=== PATIENT | female | born 1955 | race Caucasian/White ===

== ENCOUNTER 2019-08-11 06:13 | Day surgery (SDC) | payer BC, OTHER ==
[2019-08-10 14:10] VITALS: BMI 29.3
[2019-08-11] MEDS ORDERED: DEXAMETHASONE SOD PHOSPHATE 4 MG/1 ML VIAL ONE (07:14)
[2019-08-11] MEDS ORDERED: BUPIVACAINE HCL/PF 0.5% (5 MG/ML) 30 ML VIAL IJ ONE ×2 (07:14→08:06)
[2019-08-11] MEDS ORDERED: LIDOCAINE HCL 1%, 10 MG/ML (20ML VIAL) ONE (07:14)
[2019-08-11] MEDS ORDERED: MIDAZOLAM HCL 2 MG/2 ML SINGLE DOSE VIAL ONE ×2 (07:59)
[2019-08-11] MEDS ORDERED: ceFAZolin SODIUM 1 GM VIAL IVPB ONE (08:00)
[2019-08-11] MEDS ORDERED: SUCCINYLCHOLINE CHLORIDE 200 MG/10 ML SYRINGE ONE (08:03)
[2019-08-11] MEDS ORDERED: PROPOFOL 20 ML ONE ×2 (08:03)
[2019-08-11] MEDS ORDERED: LIDOCAINE HCL 1%, 10 MG/ML (20ML VIAL) PNB ONE (08:06)
[2019-08-11] MEDS ORDERED: NABUMETONE 750 MG PO SCH ×3 (09:10→10:00)
[2019-08-11] MEDS ORDERED: ROSUVASTATIN PO SCH ×3 (09:10→10:00)
[2019-08-11] MEDS ORDERED: LISINOPRIL 5 MG PO SCH ×2 (09:10→10:00)
[2019-08-11] MEDS ORDERED: CARBAMAZEPINE 100 MG PO SCH ×3 (09:10→10:00)
[2019-08-11] MEDS ORDERED: LISINOPRIL 5 MG TABLET (FP) PO SCH (09:11)
[2019-08-11 10:00] VITALS: TEMP 97.4
[2019-08-11] MEDS ORDERED: ONDANSETRON 4 MG/2 ML VIAL IVPUSH PRN (10:59)
[2019-08-11] MEDS ORDERED: oxyCODONE HCL 5 MG TABLET PO PRN (10:59)
[2019-08-11] MEDS ORDERED: LACTATED RINGERS SOLUTION 1,000 ML IV SCH (11:00)
[2019-08-11 11:03] VITALS: BP 134/70; PULSE 84
--- NOTE | 2019-08-11 12:28 | OP ---
Operative Note - Note: Operative Date: 08/11/19 Pre-Operative Diagnosis: tumor left foot with exostosis Operation: excision of tumor left foot with exostectomy Findings: Neoplasm and bone spur Post-Operative Diagnosis: Same as Pre-op Surgeon: Maria Fernanda Lopez Lead Man Over [employer] In [employer]: Govind Fuchs Anesthesia: Local, MAC Specimens Removed: bone and soft tissue Estimated Blood Loss (mls): 5 Operative Report Dictated: No
--- NOTE | 2019-08-15 17:43 | PATH ---
Surgical Pathology Report Patient Name: IRMA WOODS [facility]. Rec. #: [id number] /Age/Gender: 1955 (Age: 63) / F Account: [id number] Location: [facility] SUR[facility]ICAL Taken: 08/11/2019 Received: 08/11/2019 Reported: 08/15/2019 Physicians: Maria Fernanda Lopez DPM Specimen(s) Received A: SOFT TISSUE MASS LEFT FOOT B: BONE LEFT FOOT Clinical History Tumor with bone spur left foot Final Diagnosis A. SOFT TISSUE MASS, FOOT, LEFT, EXCISION: DENSE FIBROCONNECTIVE TISSUE WITH DEGENERATIVE AND CYSTIC CHANGE CONSISTENT WITH GANGLION CYST. B. BONE, FOOT, LEFT, EXCISION: BONE WITH DEGENERATIVE CHANGES. Electronically Signed Elva Hurst M.D. Gross Description A. Received in formalin labeled "soft tissue mass," is a 0.9 x 0.4 x 0.2 cm antunez portion of soft tissue. The specimen is submitted in toto in one cassette. B. Received in formalin labeled "bone left foot," is a 0.8 x 0.6 x 0.2 cm aggregate of antunez bone fragments. The specimen is submitted in toto in one cassette, following decalcification. 08/11/201908/11/2019
--- NOTE | 2019-08-26 18:58 | OP ---
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 PROCEDURE PERFORMED: Excision of tumor and exostectomy of the left dorsal foot. DESCRIPTION OF PROCEDURE: After noting all preoperative vital signs were within normal limits and after the surgical consent was signed and witnessed, the patient was brought to the OR and placed on the table in the supine position. An IV line had been started prior to the patient coming to the OR. Once the patient was in the OR, the patient was sedated. A local infiltrate was given in a V-block fashion on the dorsal aspect of the ankle proximal to the tumor and bone spur. Once the patient's foot was anesthetized, a well-padded ankle tourniquet was applied to the left ankle. The foot was then prepped and draped in the usual sterile fashion. At this time, utilizing a sterile Doppler, the dorsalis pedis artery was traced and marked. Once the exact location of the dorsalis pedis artery was noted, the tourniquet was inflated to 250 mmHg on the left side. Attention was then directed to the dorsal aspect, to the palpable mass and bone spur area of the left foot. Utilizing a lazy-S incision, approximately 4.5 to 5 cm long, this incision was deepened using sharp and blunt dissection to the level of the tumor. Once the tumor was identified, it was dissected out of its location and sent down to Pathology. The area was then explored, and it was noted that there was an exostosis plantar to the tumor. Utilizing a bone rongeur and a reciprocating rasp, the area was smoothed and remodeled, and the specimen was removed and sent down to Pathology. A flush was then done with copious amounts of sterile saline that had antibiotic added to it. Once this was done, the wound was reapproximated in layers using 3-0 Vicryl in an interrupted suture fashion, avoiding any neurovascular structures as well as 4-0 Vicryl in a simple interrupted suture fashion, once again avoiding any neurovascular structures, and the skin was reapproximated using 5-0 Vicryl in a subcuticular fashion. Tincture of benzoin was applied with Steri-Strips. A postoperative injection was put into place. Betadine-soaked Adaptic and dry sterile gauze were then applied. The tourniquet was deflated and capillary filling time was instantaneous to all 5 toes of the left foot. The patient tolerated the anesthesia and the procedure well. The patient returned to the recovery room with vital signs stable and vascular status intact. DARLENE House/[id number] MTDLucia
== END 2019-08-11 11:10 | disposition home or self-care (01) ==
LOC: JASU-SURG 06:13
PROVIDERS: ATTEND Podiatrist Foot Surgery
PROC: 0JBR0ZZ Excision of Left Foot Subcutaneous Tissue and Fascia, Open Approach (ICD-10-PCS; 2019-08-11)
PROC: 0QBM0ZZ Excision of Left Tarsal, Open Approach (ICD-10-PCS; principal; 2019-08-11 07:30)
DX: M89.8X7 Other specified disorders of bone, ankle and foot (principal); D21.22 Benign neoplasm of connective and other soft tissue of left lower limb, including hip
CPT/HCPCS: 73630-TC-LT; 88304-TC; 88311-TC; 94760